=== PATIENT | female | born 1975 | race African-American/Black ===

== ENCOUNTER 2016-12-18 10:37 | Emergency (ER) | payer SELFPAY ==
[~2016-12-18] VITALS: Ht 165.1 cm; Wt 103.6 kg
[~2016-12-18 10:37] MED LIST: MIRENA52 MG; MONONESSA 35 MC1 TA1 PO; NORCO 325 MG-51 TAB PO; VENTOLIN0.09 MG IH
[2016-12-18] MEDS ORDERED: PREDNISONE20 MG PO (12:14)
[2016-12-18] MEDS ORDERED: PROAIR HFA0.09 MG/AC IH (12:14)
[2016-12-18 12:41] VITALS: BP 122/75; PULSE 89; TEMP 98.5
== END 2016-12-18 12:41 | disposition home or self-care (01) ==
LOC: COL.ER 10:37
DX: J45.901 Unspecified asthma with (acute) exacerbation (principal)
CPT/HCPCS: J7512

== ENCOUNTER 2017-09-03 09:40 | Emergency (ER) | payer MEDICAID ==
[~2017-09-03] VITALS: Ht 162.6 cm; Wt 105.1 kg
[~2017-09-03 09:40] MED LIST changes: +PREDNISONE20 MG PO; +PROAIR HFA0.09 MG/AC IH
[2017-09-03 09:48] VITALS: TEMP 99.3
[2017-09-03] MEDS ORDERED: MULTI VITAMINS1 TAB PO (09:51)
[2017-09-03] MEDS ORDERED: PROAIR HFA0.09 MG/AC IH (10:16)
[2017-09-03] MEDS ORDERED: TESSALON PERLE200 MG PO (10:16)
[2017-09-03] MEDS ORDERED: ZITHROMAX 250M250 MG PO (10:16)
[2017-09-03 11:46] VITALS: BP 103/75; PULSE 112
== END 2017-09-03 11:47 | disposition home or self-care (01) ==
LOC: COL.ER 09:40
DX: J45.901 Unspecified asthma with (acute) exacerbation (principal); J06.9 Acute upper respiratory infection, unspecified; J20.9 Acute bronchitis, unspecified
CPT/HCPCS: J8540

== ENCOUNTER 2018-01-01 08:28 | Emergency (ER) | payer MEDICAID ==
[~2018-01-01] VITALS: Ht 167.6 cm; Wt 103.6 kg
[~2018-01-01 08:28] MED LIST changes: +MULTI VITAMINS1 TAB PO; +TESSALON PERLE200 MG PO; +ZITHROMAX 250M250 MG PO
[2018-01-01 08:33] VITALS: TEMP 99.5
[2018-01-01] MEDS ORDERED: PREDNISONE20 MG PO (09:39)
[2018-01-01] MEDS ORDERED: PROAIR HFA0.09 MG/AC IH (09:39)
[2018-01-01 09:41] VITALS: BP 131/82; PULSE 105
== END 2018-01-01 10:08 | disposition home or self-care (01) ==
LOC: COL.ER 08:28
DX: J45.901 Unspecified asthma with (acute) exacerbation (principal)
CPT/HCPCS: J7512

== ENCOUNTER 2018-02-27 10:00 | Emergency (ER) | payer MEDICAID ==
[~2018-02-27] VITALS: Ht 162.6 cm; Wt 105.5 kg
[2018-02-27 10:07] VITALS: BP 131/80; TEMP 98.4
[2018-02-27] MEDS ORDERED: PREDNISONE20 MG PO (10:37)
[2018-02-27] MEDS ORDERED: DULERA1 AR1 IH (10:40)
[2018-02-27] MEDS ORDERED: PROVENTIL0.09 MG/A1 IH (10:55)
[2018-02-27 11:35] VITALS: PULSE 82
== END 2018-02-27 11:35 | disposition home or self-care (01) ==
LOC: COL.ER 10:00
DX: J45.901 Unspecified asthma with (acute) exacerbation (principal)
CPT/HCPCS: J7512

== ENCOUNTER 2018-04-07 22:06 | Emergency (ER) | payer MEDICAID ==
[~2018-04-07] VITALS: Ht 162.6 cm; Wt 105.5 kg
[~2018-04-07 22:06] MED LIST changes: +DULERA1 AR1 IH; +PROVENTIL0.09 MG/A1 IH
[2018-04-07] MEDS ORDERED: BACTROBAN15 GM TOP (22:31)
[2018-04-07] MEDS ORDERED: PREDNISONE10 MG PO (22:31)
[2018-04-07 22:52] VITALS: BP 123/74; PULSE 96; TEMP 97.1
== END 2018-04-07 22:50 | disposition home or self-care (01) ==
LOC: COL.ER 22:06
DX: L30.9 Dermatitis, unspecified (principal); L01.00 Impetigo, unspecified; J45.909 Unspecified asthma, uncomplicated
CPT/HCPCS: J7512

== ENCOUNTER 2018-05-17 06:28 | Emergency (ER) | payer BC, MEDICAID ==
[~2018-05-17] VITALS: Ht 165.1 cm; Wt 105.5 kg
[~2018-05-17 06:28] MED LIST changes: +BACTROBAN15 GM TOP; +PREDNISONE10 MG PO
[2018-05-17 06:35] VITALS: TEMP 98.8
[2018-05-17 07:05] LABS: BASO % 0.7 % (0.0-2.0); EOS # 0.3 (0.0-0.7); EOS % 4.3 % (0-4.0); GRAN # 3.2 (1.4-6.5); GRAN % 53.4 % (42.2-75.2); HEMATOCRIT 39.2 % (37.0-47.0); LYMPH # 2.2 (1.2-3.4); LYMPH % 35.8 % (20.0-51.0); MEAN CELL VOLUME 98 fl (80.0-100.0); MEAN CORPUSCULAR HEMOGLOBIN 33 pg (27.0-31.0); MEAN CORPUSCULAR HGB CONC 33 g/dl (33.0-37.0); MEAN PLATELET VOLUME 9.7 fl (7.4-10.4); MONO # 0.3 (0.1-0.6); MONO % 5.3 % (1.7-9.3); PLATELET COUNT 229 K/mm3 (130-400); RED BLOOD COUNT 3.99 M/mm3 (4.10-5.30)
[2018-05-17 07:21] LABS: ALANINE AMINOTRANSFERASE 14 U/L (9-52); ALBUMIN 3.8 gm/dL (3.5-5.0); ALKALINE PHOSPHATASE 75 U/L (50-136); ANION GAP 5 mmol/L (7-16); AST,SGOT 19 U/L (15-37); BILIRUBIN,TOTAL 0.6 mg/dL (0.0-1.0); BLOOD UREA NITROGEN 12 mg/dL (7-17); CARBON DIOXIDE 27 mmol/L (22-30); CHLORIDE 106 mmol/L (98-107); CREATININE, serum 0.76 mg/dL (0.52-1.25); GLUCOSE 110 mg/dL (74-106); POTASSIUM 3.8 mmol/L (3.4-5.0); SODIUM 138 mmol/L (137-145); TOTAL PROTEIN 7.2 gm/dL (6.4-8.2)
[2018-05-17 07:24] LABS: ERYTHROCYTE SEDIMENTATION RATE 23 mm/hr (0-20)
[2018-05-17 07:28] LABS: C-REACTIVE PROTEIN < 0.5 mg/dL (0.0-0.9)
[2018-05-17 09:55] LABS: SYNOVIAL FL. MONONUCLEAR 7.6 % (0-75)
[2018-05-17 09:57] LABS: SYNOVIAL FLUID RBC 48000 /mm3 (0-0); SYNOVIAL FLUID WBC 14455 /mm3 (200-600)
[2018-05-17 09:59] LABS: SYNOVIAL FLUID APPEARANCE BLOODY; SYNOVIAL FLUID COLOR RED
[2018-05-17] MEDS ORDERED: MOBIC 7.5MG7.5 MG PO ×3 (10:23→11:12)
[2018-05-17] MEDS ORDERED: NORCO 325 MG-51 TAB PO (10:23)
[2018-05-17 11:15] VITALS: BP 121/90; PULSE 85
== END 2018-05-17 11:17 | disposition home or self-care (01) ==
LOC: COL.ER 06:28
PROVIDERS: Emergency Medicine
DX: M19.90 Unspecified osteoarthritis, unspecified site (principal); J45.909 Unspecified asthma, uncomplicated

== ENCOUNTER 2018-06-20 20:43 | Emergency (ER) | payer BC, MEDICAID ==
[~2018-06-20] VITALS: Ht 162.6 cm; Wt 105.5 kg
[~2018-06-20 20:43] MED LIST changes: +MOBIC 7.5MG7.5 MG PO
[2018-06-20 20:50] VITALS: BP 124/64; TEMP 97.9
[2018-06-20 23:10] VITALS: PULSE 68
== END 2018-06-20 23:13 | disposition home or self-care (01) ==
LOC: COL.ER 20:43
DX: M65.841 Other synovitis and tenosynovitis, right hand (principal); J45.909 Unspecified asthma, uncomplicated; M17.12 Unilateral primary osteoarthritis, left knee

== ENCOUNTER 2018-07-27 10:00 | Outpatient (RCR) | payer BC, MEDICAID | END 2018-08-19 13:00 | disposition home or self-care (01) | LOC: WSC 10:00 | DX: M25.562 Pain in left knee (principal) | CPT/HCPCS: G8978-GP; G8979-GP ==

== ENCOUNTER 2018-09-12 21:21 | Emergency (ER) | payer BC, MEDICAID ==
[~2018-09-12] VITALS: Ht 165.1 cm; Wt 106.8 kg
[2018-09-12 21:25] VITALS: BP 136/67; PULSE 87; TEMP 98.5
[2018-09-12] MEDS ORDERED: NORCO 325 MG-51 TAB PO (23:48)
== END 2018-09-13 00:28 | disposition home or self-care (01) ==
LOC: COL.ER 21:21
DX: M25.562 Pain in left knee (principal)
CPT/HCPCS: J1885

== ENCOUNTER 2019-01-25 09:40 | Emergency (ER) | payer BC, MEDICAID ==
[~2019-01-25] VITALS: Ht 165.1 cm; Wt 100.5 kg
[2019-01-25 09:44] VITALS: BP 142/80
[2019-01-25] MEDS ORDERED: PLAQUENIL 200M200 MG PO (09:56)
[2019-01-25] MEDS ORDERED: PREDNISONE20 MG PO (11:15)
[2019-01-25 11:25] VITALS: PULSE 98; TEMP 98
== END 2019-01-25 11:25 | disposition home or self-care (01) ==
LOC: COL.ER 09:40
DX: T37.8X5A Adverse effect of other specified systemic anti-infectives and antiparasitics, initial encounter (principal); M32.9 Systemic lupus erythematosus, unspecified; J98.01 Acute bronchospasm; L50.9 Urticaria, unspecified
CPT/HCPCS: J1200; J7512

== ENCOUNTER 2019-01-26 20:14 | Emergency (ER) | payer BC, MEDICAID ==
[~2019-01-26] VITALS: Ht 165.1 cm; Wt 100.5 kg
[~2019-01-26 20:14] MED LIST changes: +PLAQUENIL 200M200 MG PO
[2019-01-26 20:19] VITALS: TEMP 98.5
[2019-01-26 21:01] LABS: BASO % 0.1 % (0.0-2.0); EOS # 0.1 (0.0-0.7); EOS % 0.8 % (0-4.0); GRAN # 5.8 (1.4-6.5); GRAN % 79.4 % (42.2-75.2); HEMATOCRIT 39.4 % (37.0-47.0); HEMOGLOBIN 12.9 g/dl (12.5-16.0); LYMPH # 1.1 (1.2-3.4); LYMPH % 14.5 % (20.0-51.0); MEAN CELL VOLUME 99 fl (80.0-100.0); MEAN CORPUSCULAR HEMOGLOBIN 32 pg (27.0-31.0); MEAN CORPUSCULAR HGB CONC 33 g/dl (33.0-37.0); MEAN PLATELET VOLUME 10.1 fl (7.4-10.4); MONO # 0.4 (0.1-0.6); MONO % 4.8 % (1.7-9.3); PLATELET COUNT 200 K/mm3 (130-400); REDCELL DISTRIBUTION WIDTH-CV 12.6 % (11.5-14.5)
[2019-01-26 21:13] LABS: ALANINE AMINOTRANSFERASE 12 U/L (9-52); ALKALINE PHOSPHATASE 85 U/L (50-136); ANION GAP 10 mmol/L (7-16); AST,SGOT 29 U/L (15-37); BILIRUBIN,TOTAL 0.5 mg/dL (0.0-1.0); BLOOD UREA NITROGEN 14 mg/dL (7-17); CALCIUM 9.1 mg/dL (8.4-10.2); CARBON DIOXIDE 23 mmol/L (22-30); CHLORIDE 105 mmol/L (98-107); CREATININE, serum 0.78 (0.52-1.25); GLUCOSE 132 mg/dL (74-106); POTASSIUM 3.9 mmol/L (3.4-5.0); SODIUM 137 mmol/L (137-145); TOTAL PROTEIN 7.6 gm/dL (6.4-8.2)
[2019-01-26 21:16] LABS: C-REACTIVE PROTEIN < 0.5 mg/dL (0.0-0.9)
[2019-01-26 21:52] LABS: ERYTHROCYTE SEDIMENTATION RATE 14 mm/hr (0-20)
[2019-01-26 22:25] VITALS: BP 135/85; PULSE 68
== END 2019-01-26 22:25 | disposition home or self-care (01) ==
LOC: COL.ER 20:14
PROVIDERS: Emergency Medicine
DX: L50.8 Other urticaria (principal); T78.40XA Allergy, unspecified, initial encounter; J45.909 Unspecified asthma, uncomplicated; L93.0 Discoid lupus erythematosus; Z79.52 Long term (current) use of systemic steroids
CPT/HCPCS: J1100; J1200; J7030

== ENCOUNTER 2019-07-19 08:28 | Emergency (ER) | payer BC, MEDICAID ==
[~2019-07-19] VITALS: Ht 165.1 cm; Wt 98.0 kg
[2019-07-19 08:32] VITALS: BP 128/74; TEMP 98.6
[2019-07-19 09:23] LABS: BASO % 0.4 % (0.0-2.0); EOS # 0.1 (0.0-0.7); EOS % 1.9 % (0-4.0); GRAN # 3.5 (1.4-6.5); GRAN % 66.6 % (42.2-75.2); HEMOGLOBIN 11.6 g/dl (12.5-16.0); LYMPH # 1.3 (1.2-3.4); LYMPH % 24.3 % (20.0-51.0); MEAN CELL VOLUME 101 fl (80.0-100.0); MEAN CORPUSCULAR HEMOGLOBIN 33 pg (27.0-31.0); MEAN CORPUSCULAR HGB CONC 32 g/dl (33.0-37.0); MEAN PLATELET VOLUME 9.9 fl (7.4-10.4); MONO # 0.3 (0.1-0.6); MONO % 6.4 % (1.7-9.3); PLATELET COUNT 206 K/mm3 (130-400); RED BLOOD COUNT 3.55 M/mm3 (4.10-5.30); REDCELL DISTRIBUTION WIDTH-CV 12.6 % (11.5-14.5)
[2019-07-19 09:48] LABS: ERYTHROCYTE SEDIMENTATION RATE 31 mm/hr (0-20)
[2019-07-19] MEDS ORDERED: NORCO 325 MG-51 TAB PO (10:14)
[2019-07-19 10:40] VITALS: PULSE 85
== END 2019-07-19 10:40 | disposition home or self-care (01) ==
LOC: COL.ER 08:28
PROVIDERS: Physician Assistant
DX: M79.622 Pain in left upper arm (principal); M79.621 Pain in right upper arm; Z79.52 Long term (current) use of systemic steroids

== ENCOUNTER 2019-08-02 11:31 | Emergency (ER) | payer BC, MEDICAID ==
[~2019-08-02] VITALS: Ht 165.1 cm; Wt 98.2 kg
[2019-08-02 11:36] VITALS: BP 133/81; TEMP 98.4
[2019-08-02] MEDS ORDERED: PREDNISONE20 MG PO (12:06)
[2019-08-02] MEDS ORDERED: RT ALBUTER2.5 MG/0.5 IH (12:08)
[2019-08-02] MEDS ORDERED: DAPSONE 100MG100 MG PO (12:09)
[2019-08-02] MEDS ORDERED: TAMIFLU 75MG75 MG PO (12:55)
[2019-08-02 13:52] VITALS: PULSE 105
== END 2019-08-02 13:47 | disposition home or self-care (01) ==
LOC: COL.ER 11:31
DX: J45.901 Unspecified asthma with (acute) exacerbation (principal); J10.1 Influenza due to other identified influenza virus with other respiratory manifestations; Z79.52 Long term (current) use of systemic steroids

== ENCOUNTER 2019-08-08 00:28 | Inpatient (IN) | payer BC, MEDICAID ==
[~2019-08-08] VITALS: Ht 165.1 cm; Wt 100.3 kg
[~2019-08-08 00:28] MED LIST changes: +DAPSONE 100MG100 MG PO; +RT ALBUTER2.5 MG/0.5 IH; +TAMIFLU 75MG75 MG PO
[2019-08-08 01:31] LABS: BASO % 0.3 % (0.0-2.0); EOS # 0.1 (0.0-0.7); EOS % 1.2 % (0-4.0); GRAN # 3.5 (1.4-6.5); GRAN % 60.4 % (42.2-75.2); HEMOGLOBIN 11.6 g/dl (12.5-16.0); LYMPH # 1.9 (1.2-3.4); MEAN CELL VOLUME 103 fl (80.0-100.0); MEAN CORPUSCULAR HEMOGLOBIN 32 pg (27.0-31.0); MEAN CORPUSCULAR HGB CONC 31 g/dl (33.0-37.0); MEAN PLATELET VOLUME 9.8 fl (7.4-10.4); MONO # 0.3 (0.1-0.6); MONO % 4.9 % (1.7-9.3); PLATELET COUNT 181 K/mm3 (130-400); RED BLOOD COUNT 3.59 M/mm3 (4.10-5.30)
[2019-08-08 01:43] LABS: ALBUMIN 3.9 gm/dL (3.5-5.0); BILIRUBIN,TOTAL 1.4 mg/dL (0.0-1.0); C-REACTIVE PROTEIN 7.7 mg/dL (0.0-0.9); CALCIUM 8.6 mg/dL (8.4-10.2); CREATININE, serum 0.55 (0.52-1.25); POTASSIUM 3.5 mmol/L (3.4-5.0); TOTAL PROTEIN 7.6 gm/dL (6.4-8.2)
[2019-08-08 01:52] LABS: TROPONIN-I 0.019 ng/mL (0.000-0.035)
--- NOTE | 2019-08-08 05:15 | NUR ---
ADMITTED TO ROOM 351 PER BED. DROPLET ISOLATION NOTED. TELE IN PLACE, INT NEEDLE BILAT F/A STARTED IN ER. NS STARTED AT 150CC//HR PER PUMP TO LT ARM. ORIENTED TO ROOM. CALL LIGHT IN REACH. BED ALARM SET FOR HIGH FALL RISK. WEAK.
--- NOTE | 2019-08-08 05:33 | NUR ---
PT VERY WEAK. HAS THICK NON PRODUCTIVE COUGH. O2 SAT 100% ON RA. STARTED ZOSYN IN LT AC. VANCOMYCIN INFUSING RT AC, PAIN LEVEL 8/10 BACK AREA. REVIEWED ORIENTATION TO ROOM. HAS HAIR EXTENSIONS GLUED IN. HAS RT LIP PIERCING.
[2019-08-08] MEDS ORDERED: RT ALBUTER2.5 MG/0.5 IH (05:41)
[2019-08-08] MEDS ORDERED: CYMBALTA 30MG30 MG PO (05:45)
[2019-08-08] MEDS ORDERED: CYMBALTA 60MG60 MG PO (05:48)
[2019-08-08 06:18] VITALS: BP 122/71; PULSE 106; TEMP 98.5
[2019-08-08 07:32] VITALS: BP 131/75; PULSE 96; TEMP 98.6
[2019-08-08 12:32] VITALS: BP 147/83; PULSE 90; TEMP 97.9
--- NOTE | 2019-08-08 14:36 | NUR ---
Community Advocate met with patient and patient's daughter Sarah (ph#[phone]) to discuss discharge planning. Patient lives in [place] and sees Dr. Chung for primary care. Patient obtains medications from [facility] with no difficulties. Patient uses a nebulizer and no other DME. Patient is independent with ADLS. Patient does not have Advance Directives but is interested in taking home the form. SW provided. Patient plans to return home upon discharge with her daughter providing transportation. No additional needs identified at this time.
[2019-08-08 16:10] VITALS: BP 143/82; PULSE 94; TEMP 98.2
--- NOTE | 2019-08-08 19:23 | NUR ---
Patient is alert and oriented. complained of back pain. got norco for pain. Patient got a shower this afternoon. patient had IV on right and left AC. left IV leaked,it was removed. i attempted another new iv twice. no success. patient still have IV on right AC. Patient daughter came to visit earlier today. patient is currently resting in bed. Denies any pain at this time
[2019-08-08 19:35] VITALS: BP 129/80; PULSE 86; TEMP 98.1
--- NOTE | 2019-08-08 19:39 | NUR ---
Resting in bed. Assessment complete. Respirations 24, shortness of breath while resting in bed. Wheezing on expiration heard in right lung and left base. Heart sounds normal. Bowels active x4. Pulses strong throughout. No edema noted. Denies pain. IV right AC free of complications at this time. Requesting order for vasaline for itching due to lupus. Denies other needs. Call light in reach.
--- NOTE | 2019-08-08 19:48 | NUR ---
Spoke with Selma CALDWELL for order for vasaline. Will add for patient.
--- NOTE | 2019-08-08 22:50 | NUR ---
Laying in bed. Reports mid epigastric pain. States "feels like dinner is stuck there." Request something for heart burn. Will contact PAULETTE Hahn.
--- NOTE | 2019-08-09 01:06 | NUR ---
Epigastric pain continues. Orderes received for GI cocktail and protonix. Will provided to patient.
[2019-08-09 01:11] VITALS: BP 129/75; PULSE 110; TEMP 97
--- NOTE | 2019-08-09 03:32 | NUR ---
Patient reporting continued epigastric pain. Per Selma can given another GI cocktail and PRN norco. Will provide.
--- NOTE | 2019-08-09 03:41 | NUR ---
Refused GI cocktail. Accepted norco.
[2019-08-09 04:53] VITALS: BP 121/74; PULSE 77; TEMP 98
--- NOTE | 2019-08-09 06:33 | NUR ---
Patient epigastric pain resolved with norco. Otherwise uneventful night. Resting in bed this AM. Denies needs. Call light in reach.
--- NOTE | 2019-08-09 07:41 | NUR ---
Report given to KIMBERLY Saravia
[2019-08-09 08:35] LABS: BASO % 0.1 % (0.0-2.0); GRAN # 5.9 (1.4-6.5); GRAN % 81.5 % (42.2-75.2); HEMOGLOBIN 10.2 g/dl (12.5-16.0); LYMPH # 0.9 (1.2-3.4); LYMPH % 12.7 % (20.0-51.0); MEAN CELL VOLUME 103 fl (80.0-100.0); MEAN CORPUSCULAR HEMOGLOBIN 32 pg (27.0-31.0); MEAN CORPUSCULAR HGB CONC 32 g/dl (33.0-37.0); MEAN PLATELET VOLUME 10.3 fl (7.4-10.4); MONO # 0.4 (0.1-0.6); MONO % 5.1 % (1.7-9.3); PLATELET COUNT 170 K/mm3 (130-400); RED BLOOD COUNT 3.15 M/mm3 (4.10-5.30); REDCELL DISTRIBUTION WIDTH-CV 13.8 % (11.5-14.5)
[2019-08-09 08:38] LABS: HEMATOCRIT 32.4 % (37.0-47.0)
[2019-08-09 08:48] LABS: ALBUMIN 3.8 gm/dL (3.5-5.0); BILIRUBIN,TOTAL 0.9 mg/dL (0.0-1.0); CALCIUM 8.7 mg/dL (8.4-10.2); CREATININE, serum 0.55 (0.52-1.25); POTASSIUM 3.6 mmol/L (3.4-5.0); TOTAL PROTEIN 7.5 gm/dL (6.4-8.2)
--- NOTE | 2019-08-09 09:00 | NUR ---
Patient is sitting up in bed, is emotional, states that she is overwhelmed. Has been sitting in the dark. Did ask if she would like for staff to turn on lights and she declined. She denies needs at this time. Call light and personal items are within reach.
--- NOTE | 2019-08-09 09:37 | NUR ---
Division Toll Wire Chief attended clinical rounds with the team. Patient reports chest pain to Hospitalist. SW to continue to follow as needed.
[2019-08-09 11:49] VITALS: BP 125/65; PULSE 60; TEMP 98
[2019-08-09 17:12] VITALS: BP 129/80; PULSE 65; TEMP 98.3
--- NOTE | 2019-08-09 19:00 | NUR ---
0930, patient has been very tearful, did sit with patient and she verbalized that she was very overwhelmed and struggling. Did administer ordered ativan which was placed at 0945. Patient then went to CT and returned happy stating she felt so much better. She was smiling and positive. Did have lights on and was visiting. With staff and visitors. Did speak with infection control nurse regarding completed course of tamiflu, will review record tomorrow to determine if patient may be taken off precautions.
--- NOTE | 2019-08-09 19:30 | NUR ---
Resting in bed. Assesment complete. Left lower lobe diminished. Right lower lobe crackles. Otherwise clear. Heart sounds normal. Bowels active x4. Pulses strong throughout. Bilateral lower leg edema +1 present. IV right AC infusing as ordered without complications. Requested PRN ativan. Provided to patient. Denies pain. Denies other needs at this time. Call light in reach.
[2019-08-09 22:19] VITALS: BP 121/71; PULSE 71; TEMP 97.7
--- NOTE | 2019-08-09 22:30 | NUR ---
Provided with JIHAN orozco at this time. Denies other needs. Call light in reach.
--- NOTE | 2019-08-10 01:43 | NUR ---
Telememtry called stating patient bradycardic in 40s. Upon assessment patient sleeping. Denies symptoms at this time. Will monitor. Call light in reach.
[2019-08-10 01:52] VITALS: BP 146/87; PULSE 57; TEMP 98.1
--- NOTE | 2019-08-10 02:56 | NUR ---
Resting in bed. Denies needs. Denies pain. Call light in reach.
--- NOTE | 2019-08-10 05:21 | NUR ---
Resting in bed. Denies needs. Call light in reach.
--- NOTE | 2019-08-10 05:49 | NUR ---
Patient required x1 dose of ativan and x1 dose of robitussin throughout night. Otherwise uneventful. Resting in bed this AM. Call light in reach.
[2019-08-10 05:57] VITALS: BP 144/85; PULSE 77; TEMP 98.1
--- NOTE | 2019-08-10 06:59 | NUR ---
Report given to KIMBERLY Robles
[2019-08-10 07:29] LABS: EOS % 0.2 % (0-4.0); GRAN # 3.7 (1.4-6.5); GRAN % 58.6 % (42.2-75.2); LYMPH # 2.1 (1.2-3.4); LYMPH % 32.8 % (20.0-51.0); MEAN CELL VOLUME 103 fl (80.0-100.0); MEAN CORPUSCULAR HGB CONC 31 g/dl (33.0-37.0); MEAN PLATELET VOLUME 10.6 fl (7.4-10.4); MONO # 0.5 (0.1-0.6); MONO % 7.8 % (1.7-9.3); PLATELET COUNT 187 K/mm3 (130-400); REDCELL DISTRIBUTION WIDTH-CV 14.1 % (11.5-14.5)
[2019-08-10 07:37] LABS: CALCIUM 8.6 mg/dL (8.4-10.2); CREATININE, serum 0.7 (0.52-1.25); POTASSIUM 3.2 mmol/L (3.4-5.0)
[2019-08-10 07:40] LABS: HEMOGLOBIN 9.6 g/dl (12.5-16.0); MEAN CORPUSCULAR HEMOGLOBIN 32 pg (27.0-31.0)
[2019-08-10 08:35] VITALS: BP 135/67; PULSE 112; TEMP 98.1
[2019-08-10] MEDS ORDERED: ZITHROMAX Z PA250 MG PO (11:39)
[2019-08-10] MEDS ORDERED: OMNICEF 300MG300 MG PO (11:40)
[2019-08-10] MEDS ORDERED: KLONOPIN 0.5MG0.5 MG PO (11:42)
[2019-08-10 12:05] VITALS: BP 143/80; PULSE 77; TEMP 97.4
[2019-08-10] MEDS ORDERED: PROTONIX 40MG T40 MG PO (14:26)
[2019-08-10 15:39] VITALS: BP 147/89; PULSE 71; TEMP 98.4
--- NOTE | 2019-08-10 16:30 | NUR ---
PT HAD UNEVENTFUL DAY. RECIEVED LAST DOSE OF IV ABX BEFORE DC'ING AND FINISHED DRINKING HER POTASSIUM. IV AND TELE REMOVED WITHOUT ISSUES.DISCHARE EDUCATION PROVIDED. NO QUESTIONS VOICED. BURGLAR ALARM ASSEMBLER ESCORTED PT RICHARD WHEN HER FAMILY WAS HERE TO TAKE HER HOME.
[2019-08-13 14:39] LABS: MYCOPLASMA IGM ANTIBODIES Negative (Negative)
[2019-08-16 08:39] LABS: .HISTOPLASMA ANTIGEN SERUM None Detected (())
== END 2019-08-10 17:00 | disposition home or self-care (01) | DRG 871 ==
LOC: COL.ER 00:28 → MEDICAL 03:09
PROVIDERS: Emergency Medicine; Hospitalist; Physician Assistant; ADMIT Family Medicine
DX: A41.9 Sepsis, unspecified organism (principal); J10.00 Influenza due to other identified influenza virus with unspecified type of pneumonia; J45.909 Unspecified asthma, uncomplicated; F32.9 Major depressive disorder, single episode, unspecified; E87.6 Hypokalemia; R07.89 Other chest pain; L93.0 Discoid lupus erythematosus; D50.9 Iron deficiency anemia, unspecified; R79.89 Other specified abnormal findings of blood chemistry
CPT/HCPCS: 99222-AI; 99232-AI; 99239; J1650; J1956; J2543; J2920; J2930; J3370; J7030; J7050; J7512; Q9967

== ENCOUNTER 2019-11-10 14:32 | Emergency (ER) | payer BC, MEDICAID ==
[~2019-11-10] VITALS: Ht 165.1 cm; Wt 97.7 kg
[~2019-11-10 14:32] MED LIST changes: +CYMBALTA 30MG30 MG PO; +CYMBALTA 60MG60 MG PO; +KLONOPIN 0.5MG0.5 MG PO; +OMNICEF 300MG300 MG PO; +PROTONIX 40MG T40 MG PO; +ZITHROMAX Z PA250 MG PO
[2019-11-10 14:42] VITALS: BP 134/83; TEMP 98.5
[2019-11-10] MEDS ORDERED: DAPSONE 100MG100 MG PO (15:06)
[2019-11-10] MEDS ORDERED: BACTRIM DS 8001 TAB PO (16:05)
[2019-11-10] MEDS ORDERED: NORCO 325 MG-51 TAB PO (16:05)
[2019-11-10 16:30] VITALS: PULSE 100
== END 2019-11-10 16:31 | disposition home or self-care (01) ==
LOC: COL.ER 14:32
DX: L03.116 Cellulitis of left lower limb (principal); L03.115 Cellulitis of right lower limb; J45.909 Unspecified asthma, uncomplicated; M32.9 Systemic lupus erythematosus, unspecified

== ENCOUNTER → 2020-01-23 | Outpatient (CLI) | payer BC, MEDICAID ==
[~2020-01-23] MED LIST changes: +BACTRIM DS 8001 TAB PO
== END ==
LOC: COL.RAD 11:00
DX: M33.90 Dermatopolymyositis, unspecified, organ involvement unspecified (principal)
CPT/HCPCS: Q9967

== ENCOUNTER 2020-02-02 10:42 | Emergency (ER) | payer BC, MEDICAID ==
[~2020-02-02] VITALS: Ht 165.1 cm; Wt 104.1 kg
[2020-02-02 11:13] VITALS: TEMP 98.9
[2020-02-02] MEDS ORDERED: IMURAN 50MG TAB50 MG PO (11:19)
[2020-02-02 12:29] LABS: COLLECTION METHOD CLEAN CATCH
[2020-02-02 12:37] LABS: MUCOUS Present /lpf; PH 5 (5-8); SQUAMOUS EPITHELIAL 0-2 /hpf; URINE APPEARANCE Hazy; URINE BACTERIA None Seen /hpf; URINE BILIRUBIN Negative (NEGATIVE); URINE BLOOD 1+ (NEGATIVE); URINE COLOR Amber; URINE GLUCOSE Negative (NEGATIVE); URINE KETONE Negative (NEGATIVE); URINE LEUKOCYTE ESTERASE Negative (NEGATIVE); URINE NITRATE Negative (NEGATIVE); URINE PROTEIN(semi-quant) 1+ (NEGATIVE); URINE UROBILINOGEN >=4.0 mg/dL (NEGATIVE)
[2020-02-02] MEDS ORDERED: NORCO 325 MG-51 TAB PO (13:32)
[2020-02-02 14:33] VITALS: BP 105/73; PULSE 92
== END 2020-02-02 14:33 | disposition home or self-care (01) ==
LOC: COL.ER 10:42
PROVIDERS: Physician Assistant
DX: L98.9 Disorder of the skin and subcutaneous tissue, unspecified (principal); M33.90 Dermatopolymyositis, unspecified, organ involvement unspecified; R51 Headache; J45.909 Unspecified asthma, uncomplicated; Z32.02 Encounter for pregnancy test, result negative; Z87.39 Personal history of other diseases of the musculoskeletal system and connective tissue; Z79.52 Long term (current) use of systemic steroids; Z88.3 Allergy status to other anti-infective agents
CPT/HCPCS: J1885

== ENCOUNTER 2020-11-26 21:54 | Emergency (ER) | payer MEDICAID ==
[~2020-11-26] VITALS: Ht 165.1 cm; Wt 104.1 kg
[~2020-11-26 21:54] MED LIST changes: +IMURAN 50MG TAB50 MG PO
[2020-11-27] MEDS ORDERED: PERCOCET 325 MG1 TA2 PO (01:38)
[2020-11-27 01:45] VITALS: BP 135/93; PULSE 89; TEMP 97.5
== END 2020-11-27 01:49 | disposition home or self-care (01) ==
LOC: COL.ER 21:54
DX: L93.0 Discoid lupus erythematosus (principal); J45.909 Unspecified asthma, uncomplicated; Z79.51 Long term (current) use of inhaled steroids
CPT/HCPCS: J2270

== ENCOUNTER 2020-12-13 06:41 | Observation (INO) | payer MEDICAID ==
[~2020-12-13] VITALS: Ht 165.1 cm; Wt 101.6 kg
[~2020-12-13 06:41] MED LIST changes: +PERCOCET 325 MG1 TA2 PO
[2020-12-13 07:23] LABS: BASO % 0.5 % (0.0-2.0); EOS % 0.8 % (0-4.0); GRAN # 2.1 (1.4-6.5); GRAN % 53.4 % (42.2-75.2); HEMATOCRIT 37.6 % (37.0-47.0); LYMPH # 1.2 (1.2-3.4); LYMPH % 31.2 % (20.0-51.0); MEAN CELL VOLUME 101 fl (80.0-100.0); MEAN CORPUSCULAR HEMOGLOBIN 32 pg (27.0-31.0); MEAN CORPUSCULAR HGB CONC 32 g/dl (33.0-37.0); MEAN PLATELET VOLUME 10.3 fl (7.4-10.4); MONO # 0.5 (0.1-0.6); MONO % 13.3 % (1.7-9.3); PLATELET COUNT 232 K/mm3 (130-400); RED BLOOD COUNT 3.73 M/mm3 (4.10-5.30); REDCELL DISTRIBUTION WIDTH-CV 13.1 % (11.5-14.5)
[2020-12-13 07:46] LABS: TROPONIN-I < 0.012 ng/mL (0.000-0.035)
[2020-12-13 08:15] LABS: ALBUMIN 3.9 gm/dL (3.5-5.0); BILIRUBIN,TOTAL 0.3 mg/dL (0.0-1.0); CALCIUM 8.9 mg/dL (8.4-10.2); CREATININE, serum 0.78 (0.52-1.25); POTASSIUM 3.4 mmol/L (3.4-5.0); TOTAL PROTEIN 8.4 gm/dL (6.4-8.2)
[2020-12-13] MEDS ORDERED: PREDNISONE 2.52.5 MG PO (09:39)
[2020-12-13] MEDS ORDERED: MASON NATURAL2000 IU PO (09:39)
[2020-12-13] MEDS ORDERED: LEXAPRO20 MG PO (09:40)
[2020-12-13] MEDS ORDERED: ELIQUIS 5MG PO (09:40)
[2020-12-13 15:21] LABS: ARTERIAL BLD GAS O2 SATURATION 98.7 % (92-100); ARTERIAL BLOOD GAS BASE EXCESS -2.4 (-2-2); ARTERIAL BLOOD GAS PCO2 32.4 mmHg (35-45); ARTERIAL BLOOD GAS pH 7.43 (7.35-7.45)
[2020-12-13 15:22] LABS: ARTERIAL BLOOD GAS PO2 129.7 mmHg (80-100)
--- NOTE | 2020-12-13 15:27 | NUR ---
PT APPEARS UPSET AND TEARFUL, AOX4, ASSESSMENT PERFORMED, ADMISSION COMPLETED, ORIENTED PT TO ROOM, HELPED HER ORDER DINNER, BROUGHT IN WATER AND TISSUES, NO OTHER NEEDS
--- NOTE | 2020-12-13 15:43 | NUR ---
ATTEMPTED TO CALL CONSULT, PHYSICIAN DID NOT ANSWER
[2020-12-13 15:51] LABS: MAGNESIUM 1.8 mg/dL (1.6-2.3)
[2020-12-13 16:22] VITALS: BP 121/72; PULSE 77; TEMP 98.8
--- NOTE | 2020-12-13 17:40 | NUR ---
PT DENIES PAIN, DENIES SOB, N/V/D. ATTEMPTED TO CALL CONSULT BUT ID DID NOT ANSWER, PT ASSESSMENT PERFORMED, INDEPENDENT IN ROOM, CALL LIGHT WITHIN REACH, OXYGEN EXTENSION BROUGHT IN, NO OTHER NEEDS
--- NOTE | 2020-12-13 17:50 | NUR ---
CRITICAL DDIMER CALLED TO DR. LUBIN. NO NEW ORDERS AT THIS TIME.
[2020-12-13 19:20] VITALS: BP 118/74; PULSE 92; TEMP 98.2
[2020-12-13 20:44] LABS: TROPONIN-I < 0.012 ng/mL (0.000-0.035)
[2020-12-13 23:07] VITALS: BP 116/78; PULSE 98; TEMP 98.6
--- NOTE | 2020-12-13 23:26 | NUR ---
Pt is complaining of chest pain. I called crescencio. She ordered, Morphine 2 mg IV push Q2hrs And EKG. Morphine was given. Tele called about her HR. VSS. Will continue to monitor the pt.
[2020-12-14 03:18] VITALS: BP 109/70; PULSE 72; TEMP 98.1
[2020-12-14 06:35] LABS: BASO % 0.3 % (0.0-2.0); GRAN # 1.8 (1.4-6.5); GRAN % 55.1 % (42.2-75.2); HEMATOCRIT 37.4 % (37.0-47.0); MEAN CELL VOLUME 101 fl (80.0-100.0); MEAN CORPUSCULAR HEMOGLOBIN 32 pg (27.0-31.0); MEAN CORPUSCULAR HGB CONC 32 g/dl (33.0-37.0); MEAN PLATELET VOLUME 10.5 fl (7.4-10.4); MONO # 0.4 (0.1-0.6); MONO % 12.7 % (1.7-9.3); PLATELET COUNT 263 K/mm3 (130-400); REDCELL DISTRIBUTION WIDTH-CV 13.1 % (11.5-14.5)
[2020-12-14 06:45] LABS: ANION GAP 6 mmol/L (7-16); BLOOD UREA NITROGEN 16 mg/dL (7-17); CALCIUM 9.1 mg/dL (8.4-10.2); CARBON DIOXIDE 25 mmol/L (22-30); CHLORIDE 105 mmol/L (98-107); CREATININE, serum 0.61 (0.52-1.25); GLUCOSE 97 mg/dL (74-106); POTASSIUM 3.7 mmol/L (3.4-5.0); SODIUM 135 mmol/L (137-145)
--- NOTE | 2020-12-14 06:56 | NUR ---
PT NOT WEARING OXYGEN, ADDRESSED AND PT STATED RESPIRATORY THERAPY TOOK HER OFF OF OXYGEN. PT DENIES PAIN AT THIS TIME. NO OTHER NEEDS
--- NOTE | 2020-12-14 07:50 | NUR ---
PT PLEASANT, AOX4, DENIES SOB, REPORTS MILD CHEST PRESSURE BUT DENIES PAIN MEDS, ASSESSMENT PERFORMED, MEDICATIONS GIVEN, NO OTHER NEEDS AT THIS TIME.
[2020-12-14 08:15] LABS: TROPONIN-I < 0.012 ng/mL (0.000-0.035)
[2020-12-14 08:32] VITALS: BP 117/77; PULSE 81; TEMP 98.8
[2020-12-14] MEDS ORDERED: DECADRON6 MG PO (08:57)
[2020-12-14] MEDS ORDERED: ZOFRAN ODT4 MG PO (08:58)
--- NOTE | 2020-12-14 09:43 | NUR ---
SHANFRAN PROVIDED FOR PT'S NAUSEA. EDUCATED PT ON DISCHARGE INFORMATION, IV AND TELE REMOVED, NO OTHER NEEDS/QUESTIONS AT THIS TIME. PT CALLING RIDE, WILL USE CALL LIGHT WHEN RIDE ARRIVES
--- NOTE | 2020-12-14 10:45 | NUR ---
PT ESCORTED OUT WITH BELONGINGS VIA WHEELCHAIR
== END 2020-12-14 10:45 | disposition home or self-care (01) ==
LOC: COL.ER 06:41 → MEDICAL 09:31
PROVIDERS: Emergency Medicine; Physician Assistant; ADMIT Student in an Organized Health Care Education/Training Program
DX: U07.1 COVID-19 (principal); J96.01 Acute respiratory failure with hypoxia; I82.401 Acute embolism and thrombosis of unspecified deep veins of right lower extremity; R91.1 Solitary pulmonary nodule; J45.20 Mild intermittent asthma, uncomplicated; M33.91 Dermatopolymyositis, unspecified with respiratory involvement; F32.9 Major depressive disorder, single episode, unspecified; Z79.899 Other long term (current) drug therapy; Z79.01 Long term (current) use of anticoagulants; Z79.52 Long term (current) use of systemic steroids
CPT/HCPCS: 99239; G0378; J0696; J1100; J2270; Q9967

== ENCOUNTER 2020-12-23 11:58 | Inpatient (IN) | payer MEDICAID ==
[2020-12-23] VITALS (213 sets, daily range): BP systolic 100; BP diastolic 67; PULSE 93; TEMP 98.7; O2SAT 87–100
[~2020-12-23] VITALS: Ht 165.1 cm; Wt 96.7 kg
[~2020-12-23 11:58] MED LIST changes: +DECADRON6 MG PO; +ELIQUIS 5MG PO; +LEXAPRO20 MG PO; +MASON NATURAL2000 IU PO; +PREDNISONE 2.52.5 MG PO; +ZOFRAN ODT4 MG PO
[2020-12-23 12:32] LABS: BASO % 0.2 % (0.0-2.0); GRAN # 3.8 (1.4-6.5); GRAN % 81.6 % (42.2-75.2); HEMATOCRIT 40.4 % (37.0-47.0); HEMOGLOBIN 13.3 g/dl (12.5-16.0); LYMPH # 0.7 (1.2-3.4); LYMPH % 15.9 % (20.0-51.0); MEAN CELL VOLUME 98 fl (80.0-100.0); MEAN CORPUSCULAR HEMOGLOBIN 32 pg (27.0-31.0); MEAN CORPUSCULAR HGB CONC 33 g/dl (33.0-37.0); MEAN PLATELET VOLUME 10.5 fl (7.4-10.4); MONO # 0.1 (0.1-0.6); MONO % 1.9 % (1.7-9.3); PLATELET COUNT 153 K/mm3 (130-400); RED BLOOD COUNT 4.12 M/mm3 (4.10-5.30); REDCELL DISTRIBUTION WIDTH-CV 12.5 % (11.5-14.5)
[2020-12-23 13:24] LABS: BILIRUBIN,TOTAL 0.6 mg/dL (0.0-1.0); CALCIUM 8.6 mg/dL (8.4-10.2); CREATININE, serum 1.26 (0.52-1.25); POTASSIUM 3.7 mmol/L (3.4-5.0); TOTAL PROTEIN 8.3 gm/dL (6.4-8.2)
[2020-12-23 17:16] LABS: ARTERIAL BLD GAS O2 SATURATION 96.9 % (92-100); ARTERIAL BLD GAS TCO2 CT 20.7; ARTERIAL BLOOD GAS BASE EXCESS -4.5 (-2-2); ARTERIAL BLOOD GAS HCO3 19.7 meq/L (22-26); ARTERIAL BLOOD GAS PCO2 33.9 mmHg (35-45); ARTERIAL BLOOD GAS PO2 96.6 mmHg (80-100); ARTERIAL BLOOD GAS pH 7.38 (7.35-7.45)
--- NOTE | 2020-12-23 17:16 | NUR ---
RECEIVED REPORT FROM KIMBERLY SARAH IN ER. AWAITING ARRIVAL OF PT TO ICU 3.
--- NOTE | 2020-12-23 17:45 | NUR ---
PT ARRIVES VIA STRETCHER TO ICU 3 ON 10L VIA NRB. PT ABLE TO MOVE SELF TO ICU BED BUT NOTEABLE INCREASE IN RR UNTIL PT IS ABLE TO SETTLE BACK IN BED FOR TEN MINS THEN DECREASE RR BACK TO 22. POX 90%. VSS. CALL LIGHT WITHIN REACH. PT ENCOURAGED TO TAKE DEEPER BREATHS AND ROLL FROM SIDE TO SIDE OCCASSIONALLY TO HELP OPEN UP THE LUNGS AND GET AIRFLOW. PT DEMONSTRATED UNDERSTANDING. SHALLOW BREATHS NOTED. WILL MONITOR CLOSELY.
[2020-12-23 21:06] LABS: ARTERIAL BLD GAS O2 SATURATION 96.1 % (92-100); ARTERIAL BLD GAS TCO2 CT 21.1; ARTERIAL BLOOD GAS BASE EXCESS -4.6 (-2-2); ARTERIAL BLOOD GAS PCO2 35.6 mmHg (35-45); ARTERIAL BLOOD GAS PO2 91.3 mmHg (80-100); ARTERIAL BLOOD GAS pH 7.37 (7.35-7.45)
[2020-12-24] VITALS (309 sets, daily range): BP systolic 98–119; BP diastolic 60–68; PULSE 82–88; TEMP 97.8–98.7; O2SAT 90–98
[2020-12-24 05:57] LABS: HEMATOCRIT 39.8 % (37.0-47.0); HEMOGLOBIN 12.5 g/dl (12.5-16.0); MEAN CORPUSCULAR HEMOGLOBIN 32 pg (27.0-31.0); MEAN CORPUSCULAR HGB CONC 31 g/dl (33.0-37.0); PLATELET COUNT 140 K/mm3 (130-400); RED BLOOD COUNT 3.87 M/mm3 (4.10-5.30); REDCELL DISTRIBUTION WIDTH-CV 12.8 % (11.5-14.5)
[2020-12-24 06:05] LABS: MEAN CELL VOLUME 103 fl (80.0-100.0)
[2020-12-24 06:10] LABS: CALCIUM 8.1 mg/dL (8.4-10.2); CREATININE, serum 1.04 (0.52-1.25); MAGNESIUM 2.2 mg/dL (1.6-2.3); POTASSIUM 4.4 mmol/L (3.4-5.0)
[2020-12-24 06:26] LABS: BAND 8 % (0-10); LYMPHOCYTE 19 % (20.0-51.0); NEUTROPHILS 72 % (42.0-75.2)
[2020-12-24 06:27] LABS: ANISOCYTOSIS 1+; PLATELET ESTIMATE NORMAL (NORMAL); POIKILOCYTOSIS 1+
[2020-12-24 07:48] LABS: COLLECTION METHOD CLEAN CATCH
[2020-12-24 07:59] LABS: MUCOUS Present /lpf; PH 5 (5-8); SQUAMOUS EPITHELIAL 0-2 /hpf; URINE APPEARANCE Hazy; URINE BACTERIA None Seen /hpf; URINE BILIRUBIN Negative (NEGATIVE); URINE BLOOD 2+ (NEGATIVE); URINE COLOR Yellow; URINE GLUCOSE Negative (NEGATIVE); URINE KETONE 2+ (NEGATIVE); URINE LEUKOCYTE ESTERASE Negative (NEGATIVE); URINE NITRATE Negative (NEGATIVE); URINE PROTEIN(semi-quant) 2+ (NEGATIVE); URINE RBC >50 /hpf; URINE UROBILINOGEN Negative (NEGATIVE)
--- NOTE | 2020-12-24 08:26 | NUR ---
Report received from KIMBERLY Laguna. Shift assessment completed. PT denies complaints of pain or shortness of breath unless coughing. PT does have nausea after attempting to eat breakfast, zofran administered as ordered. Continues to wear oxymask at 7L, SPO2 96%. Lungs are coarse. Bowels active. Olvera catheter in place. PT ate some breakfast but not much. PT is resting in bed on phone. Will call if any needs arise. PTs daughter is called with a morning update and how mother did over night.
--- NOTE | 2020-12-24 10:38 | NUR ---
Report given to KIMBERLY Nichols.
--- NOTE | 2020-12-24 11:07 | NUR ---
PT transferred to room 301 via wheelchair. PT able to ambulate from bed and wheel chair with standby assist. KIMBERLY Nichols bedside. Care relinquished at this time.
[2020-12-25] VITALS (8 sets, daily range): BP systolic 99–145; BP diastolic 53–80; PULSE 70–84; TEMP 97.5–98.7
--- NOTE | 2020-12-25 03:20 | NUR ---
Assessment completed,alert/oriented VS stable. She is in room air denies pain, denies SOB. She feels nauseated. Zofran PRN given. IV access gets infiltrated and started new one in left hand. She look weak but gets up indepently. She have gutierrez in placed draining good clear and yellow. Otherwise she sleep most of the night. Continue to monitor.
--- NOTE | 2020-12-25 09:00 | NUR ---
Assessment completed, alert/oriented, vital signs stable, 92% on 4L. NC at this time, she denies pain, reports overall she feels "about the same", lungs diminished with some scattered wheezing, denies cough/ or sputum production, heart RRR/distal pulses are palpable, she has been up and worked with PT, still very activity/exertion intolerant, I have updated her daughter over the phone, will continue to monitor
--- NOTE | 2020-12-25 09:42 | NUR ---
The patient is COVID positive. SW attempted to contact the patient's room and personal phone to discuss discharge plan. She did not answer. SW then contacted the patient's daughter, Sarah (ph#[phone]), to complete intake. The patient lives in [place] with her three daughters. They are 8, 14, and [id number]. Sarah reports that the children are with her, while the patient is here. Sarah reports that the patient is independent with ADLs, but sometimes needs help with meal prep/cooking. She states that her or her siblings will help the patient with this, when needed. She does not have any DME. The patient's PCP is Dr. Fawn Ang and she receives her medications from [facility]. The patient does not have a DPOA-HC. Sarah reports that the patient was interested in completing one though. She states that the patient is not and that she has five children. Three children are over the age of 18: Momo Smith, and her 19-year-old daughter. Sarah reports that the plan is for the patient to return back home upon discharge. The patient is currently on 3 liters of oxygen. SW to continue to monitor. SW to collaborate with the patient's RN for the DPOA-HC. *Discharge plan: home with children*
[2020-12-25 15:37] LABS: ALBUMIN 3.7 gm/dL (3.5-5.0); C-REACTIVE PROTEIN 3.9 mg/dL (0.0-0.9); TOTAL PROTEIN 7.9 gm/dL (6.4-8.2)
[2020-12-25 15:51] LABS: BILIRUBIN UNCONJUGATED 0.4 mg/dL (0.0-1.1); BILIRUBIN,DIRECT 0.5 mg/dL (0.0-0.4); BILIRUBIN,TOTAL 0.8 mg/dL (0.0-1.0)
--- NOTE | 2020-12-25 21:58 | NUR ---
Pt seems anxious to me. chest pain rated 6/10. Narco was given. Will continue to monitor.
[2020-12-26 03:46] VITALS: BP 113/73; PULSE 65; TEMP 98.4
[2020-12-26 07:04] LABS: GRAN # 1.9 (1.4-6.5); GRAN % 74.5 % (42.2-75.2); HEMATOCRIT 37.6 % (37.0-47.0); HEMOGLOBIN 11.9 g/dl (12.5-16.0); LYMPH # 0.5 (1.2-3.4); LYMPH % 17.4 % (20.0-51.0); MEAN CELL VOLUME 101 fl (80.0-100.0); MEAN CORPUSCULAR HEMOGLOBIN 32 pg (27.0-31.0); MEAN CORPUSCULAR HGB CONC 32 g/dl (33.0-37.0); MEAN PLATELET VOLUME 10.5 fl (7.4-10.4); MONO # 0.2 (0.1-0.6); MONO % 7.7 % (1.7-9.3); PLATELET COUNT 197 K/mm3 (130-400); RED BLOOD COUNT 3.74 M/mm3 (4.10-5.30); REDCELL DISTRIBUTION WIDTH-CV 12.7 % (11.5-14.5)
[2020-12-26 07:12] LABS: ALBUMIN 3.4 gm/dL (3.5-5.0); BILIRUBIN,TOTAL 0.4 mg/dL (0.0-1.0); CALCIUM 8.6 mg/dL (8.4-10.2); CREATININE, serum 0.87 (0.52-1.25); POTASSIUM 4.2 mmol/L (3.4-5.0); TOTAL PROTEIN 7.6 gm/dL (6.4-8.2)
[2020-12-26 07:36] VITALS: BP 105/65; PULSE 70; TEMP 98.6
--- NOTE | 2020-12-26 07:47 | NUR ---
Pt assessment complete. Pt is sitting up in bed upon entry, she is A/O x4. Her breathing is tachy but unlabored on O2. Pt endorses SOB, pain to chest, worsened with cough, denies need for cough medication. Reports diarrhea has subsided. May HENAO. No further needs call light within reach.
[2020-12-26 11:26] VITALS: BP 113/62; PULSE 63; TEMP 97.6
[2020-12-26 17:17] VITALS: BP 122/70; PULSE 62; TEMP 97
--- NOTE | 2020-12-26 18:45 | NUR ---
Pt sat up in the recliner for part of the afternoon. Laying in bed currently, has not had any dinner yet, PO encouraged. Pt has a flat affect when communicating. She denies any needs at this time. O2 needs unchanged through the day.
[2020-12-26 20:24] VITALS: BP 118/71; PULSE 73; TEMP 98.7
--- NOTE | 2020-12-26 20:26 | NUR ---
ALERT AND OX4. PT SLEEEPING WHEN ENTERING. MEAL PASSED HAS SOME APPETITE NOT MUCH. DENIES SOA WHEN IN BED, NO CHEST PAIN, DIZZY OR LIGHTHEADNESS. CUMMINS TO DD, CLEAR YELLOW URINE. ASSESSMENT COMPLETE. PM MEDS GIVEN. FAMILY UPDATED ON STATUS. NEEDS MET. CALL CLAIRE HERNANDEZ.
[2020-12-26 23:24] VITALS: BP 115/83; PULSE 63; TEMP 97.9
[2020-12-27 04:15] VITALS: BP 118/72; PULSE 60; TEMP 98.4
--- NOTE | 2020-12-27 05:39 | NUR ---
rested through the night without incident. am meds given. needs met .
[2020-12-27 07:02] LABS: HEMOGLOBIN 12.1 g/dl (12.5-16.0); MEAN CELL VOLUME 100 fl (80.0-100.0); MEAN CORPUSCULAR HEMOGLOBIN 33 pg (27.0-31.0); MEAN CORPUSCULAR HGB CONC 33 g/dl (33.0-37.0); MEAN PLATELET VOLUME 10.5 fl (7.4-10.4); PLATELET COUNT 192 K/mm3 (130-400); RED BLOOD COUNT 3.72 M/mm3 (4.10-5.30); REDCELL DISTRIBUTION WIDTH-CV 12.5 % (11.5-14.5)
[2020-12-27 07:11] LABS: CALCIUM 8.7 mg/dL (8.4-10.2); CREATININE, serum 0.79 (0.52-1.25); POTASSIUM 4.3 mmol/L (3.4-5.0)
[2020-12-27 07:58] LABS: BAND 3 % (0-10); LYMPHOCYTE 29 % (20.0-51.0); NEUTROPHILS 56 % (42.0-75.2); PLATELET ESTIMATE NORMAL (NORMAL)
[2020-12-27 08:03] VITALS: BP 115/65; PULSE 58; TEMP 98.6
[2020-12-27 11:55] VITALS: BP 129/79; PULSE 58; TEMP 98
--- NOTE | 2020-12-27 13:49 | NUR ---
0700 PT RECEIVED RESTING IN BED. NO S/S OF DISTRESS NOTICED. PT HAS NO COMPLAINTS AT THIS TIME. COMFORT MEASURES IN PLACE. ISOLATION PRECAUTION MAINTAINED. CALL-LIGHT IN REACH. BED IN LOW POSITION. WILL CONTINUE TO MONITOR. 0900 MEDICATIONS ADMINISTERED ORDERED. OXYGEN AT 1L, PT SATURATIONS MAINTAINING ABOVE 90%. PT ATE HER MEAL. PT VOICES NO CONCERNS. CUMMINS CARE PROVIDED. WILL CONTINUE TO MONITOR. 1030 PT DAUGHTER UPDATED WITH THE CONSENT OF THE PT. 1200 PT ATE HER MEAL . PT VOICES NO CONCERNS. COMFORT MEASURES IN PLACE. WILL CONTINUE TO MONITOR.
--- NOTE | 2020-12-27 15:15 | NUR ---
The patient is currently requiring 1 liter of oxygen. SW contacted the patient to review d/c plan. The patient confirms that she plans on returning home upon discharge. She had no other questions or concerns for SW at this time. *Discharge plan: home with children*
[2020-12-27 15:19] VITALS: BP 98/68; PULSE 85; TEMP 99
--- NOTE | 2020-12-27 15:20 | NUR ---
Report from KIMBERLY Fink
--- NOTE | 2020-12-27 15:39 | NUR ---
REPORT GIVEN TO NURSE AYALA.
--- NOTE | 2020-12-27 18:18 | NUR ---
Patient laying in bed, very soft spoken. VSS 1L NC O2. No reported SOB. IV CDI, fluilds infusing. Denies pain and discomfort. Nurse gave the patient a warm blanket. No further needs expressed from the patient. Droplet/contact precautions in place. Call light within reach.
[2020-12-27 21:48] VITALS: BP 109/69; PULSE 77; TEMP 98.9
--- NOTE | 2020-12-27 21:48 | NUR ---
ALERT AND OX4. PT VERY QUIET SPOKEN. CONT TO HAVE POOR APPEITITE STATES BEING SOA OF IS GETTING LESS. ON 1 LITER O2NC. PM MEDS, ANTIBOTICS GIVEN. PT DENIES ANY PAIN. CALL LIGHT WI REACH.
--- NOTE | 2020-12-27 23:12 | NUR ---
UPDATED PT DAUGHTER ON STATUS OF PT. CONCERNS FOR DEPRESSION DAUGHTER STATES SHE HAS NOT CONTACTED HER IN A FEW DAYS. RELAYING MESSAGES TO PT. AND WILL PASS ON NEED TO SEE CLERGY. VALENTINA INITATED HERE 2 DAYS AGO. DAUGHTER SAID ITS BEEN PRESCRIBED FOR A WHILE NOT BUT PT NORMALY DOES NOT TAKE IT AT HOME.
[2020-12-28 04:38] VITALS: BP 109/59; PULSE 78; TEMP 98.4
--- NOTE | 2020-12-28 05:37 | NUR ---
RESTED THROUGH THE NIGHT WITHOUT INCIDENT. NEEDS MET. 02 UP TO 2 L THIS AM SHE SATING 87-88 % ON 1 LITER.
[2020-12-28 06:30] LABS: HEMATOCRIT 37.6 % (37.0-47.0); HEMOGLOBIN 12.2 g/dl (12.5-16.0); MEAN CELL VOLUME 99 fl (80.0-100.0); MEAN CORPUSCULAR HEMOGLOBIN 32 pg (27.0-31.0); MEAN CORPUSCULAR HGB CONC 32 g/dl (33.0-37.0); MEAN PLATELET VOLUME 10.5 fl (7.4-10.4); PLATELET COUNT 194 K/mm3 (130-400); REDCELL DISTRIBUTION WIDTH-CV 12.3 % (11.5-14.5)
[2020-12-28 06:37] LABS: CALCIUM 8.6 mg/dL (8.4-10.2); CREATININE, serum 0.75 (0.52-1.25); POTASSIUM 4.2 mmol/L (3.4-5.0)
[2020-12-28 07:28] LABS: BAND 2 % (0-10); LYMPHOCYTE 42 % (20.0-51.0); NEUTROPHILS 51 % (42.0-75.2); PLATELET ESTIMATE NORMAL (NORMAL)
[2020-12-28 08:00] VITALS: BP 102/64; PULSE 70; TEMP 97.8
[2020-12-28 13:00] VITALS: BP 114/88; PULSE 81; TEMP 98.3
[2020-12-28 15:57] VITALS: BP 111/51; PULSE 72; TEMP 98.3
--- NOTE | 2020-12-28 17:00 | NUR ---
0700 PT RECEIVED RESTING IN BED. NO S/S OF DISTRESS. PT SEEMS DOWN AND WAS ENCOURAGE TO DO OTHER ACTIVITIES, SUCH WATCHING TV, TALKING TO FAMILY OR FRIEND ON THE PHONE. OXYGEN IN PLACE AT 2L. PT HAS NO CONCERNS. CALL-LIGHT IN REACH. BED IN LOW POSITION. 0900 PT ATE SOME OF HER MEAL. MEDICATIONS ADMINISTERED ORDERED. PT HAS NO COMPLAINTS AT THIS TIME. 1000 PT DAUGHTER UPDATED WITH HER CONSENT. DAUGHTER ENCOURAGED TO BRING MOTHER ACTIVITIES SHE LIKE FROM HOME FOR HER STATES SHE WILL BRING HER PUZZLE BOOKS AND AIRPODS. 1030 PT TRIED TO WORK WITH PT TODAY AND SHE REFUSED. RISK AND BENEFITS OF PHYSICAL THERAPY EXPLAINED TO PT AND SHE STILL REFUSED. 1200 PT ENCOURAGED TO ORDER LUNCH. SHE ATE HALF OF HER LUNCH AND DRANK HER ENSURE. 1400 PT OFFERED A SNACK AND REFUSED. SHE IS WATCHING TV AT THIS TIME. 1600 V/S STABLE. PT DOWN TO 1L OF OXYGEN. PT ENCOURAGED TO ORDER SUPPER AND SHE STATES SHE WILL WHEN SHE'S READY.
[2020-12-28 19:34] VITALS: BP 102/54; PULSE 77; TEMP 97.8
--- NOTE | 2020-12-28 22:13 | NUR ---
ALERT ANDOX4. PT VERY QUIET SPOKEN. DENIES ANY PAIN, SOA W EXCERTION. PM MEDS GIVEN. IV FLUSHED, ANTIBOTICS GIVEN. POC DISCUSSED. PT ENC TO EAT STATES WILL LATER, ENC TO DRINK PROTEIN SHAKES. POOR APPEITITE. NEEDS MET.
[2020-12-29 00:18] VITALS: BP 112/71; PULSE 70; TEMP 98.1
[2020-12-29 03:26] VITALS: BP 110/62; PULSE 63; TEMP 97.9
--- NOTE | 2020-12-29 04:44 | NUR ---
rested through the night without incident.
[2020-12-29 07:59] VITALS: BP 103/67; PULSE 65; TEMP 97.5
[2020-12-29 09:31] LABS: EOS % 0.5 % (0-4.0); GRAN # 2.3 (1.4-6.5); GRAN % 55.8 % (42.2-75.2); HEMATOCRIT 38.3 % (37.0-47.0); HEMOGLOBIN 12.4 g/dl (12.5-16.0); LYMPH # 1.5 (1.2-3.4); LYMPH % 35.6 % (20.0-51.0); MEAN CELL VOLUME 98 fl (80.0-100.0); MEAN CORPUSCULAR HEMOGLOBIN 32 pg (27.0-31.0); MEAN CORPUSCULAR HGB CONC 32 g/dl (33.0-37.0); MEAN PLATELET VOLUME 10.4 fl (7.4-10.4); MONO # 0.3 (0.1-0.6); MONO % 6.9 % (1.7-9.3); PLATELET COUNT 217 K/mm3 (130-400); REDCELL DISTRIBUTION WIDTH-CV 12.3 % (11.5-14.5)
[2020-12-29 09:40] LABS: CALCIUM 8.8 mg/dL (8.4-10.2); CREATININE, serum 0.7 (0.52-1.25); MAGNESIUM 1.8 mg/dL (1.6-2.3); POTASSIUM 3.8 mmol/L (3.4-5.0)
--- NOTE | 2020-12-29 09:54 | NUR ---
0700 PT RECIEVED RESTING IN BED. NO S/S OF DISTRESS NOTICED. PT OXYGEN AT 0.5L. PT DENIES PAIN. PT ENCOURAGED TO ORDER BREAKFAST. CALL-LIGHT IN REACH. BED IN LOW POSITION. WILL CONTINUE TO MONITOR. 0800 V/S STABLE. 0900 MEDICATIONS ADMINISTERED ORDERED. PT HAS NO COMPLAINTS AT THIS TIME. BELONGINGS GIVEN TO PT, FAMILY MEMBER DROP BELONGINGS OFF. A.M. CARE PROVIDED. 0930 BREAKFAST GIVEN TO PT. 50% EATEN. PT ENCOURAGED TO EAT. WILL CONTINUE TO MONITOR.
[2020-12-29] MEDS ORDERED: PROAIR HFA0.09 MG/AC IH (10:05)
[2020-12-29] MEDS ORDERED: RT Albuterol HFA MDI IH (10:05)
[2020-12-29] MEDS ORDERED: ELIQUIS 5MG PO (10:05)
[2020-12-29] MEDS ORDERED: ROBITUSSIN DM 105 ML PO (10:06)
[2020-12-29] MEDS ORDERED: DECADRON6 MG PO (10:06)
[2020-12-29] MEDS ORDERED: TYLENOL 325MG325 MG PO (10:06)
[2020-12-29 12:00] VITALS: BP 119/79; PULSE 72; TEMP 98.8
--- NOTE | 2020-12-29 12:32 | NUR ---
1211 CUMMINS CATHETER DISCONTINUED. PT TOLERATED. 1215 DISCHARGE INSTRUCTIONS REVIEWED WITH PT. ALL QUESTIONS ANSWERED. ISOLATION MEASURES REVIEWED WITH PT. IV DISCONTINUED. PT DAUGHTER WILL BE PICKING HER UP. PT PACKED HER BELONGINGS. 1228 PT VOIDED.
== END 2020-12-29 12:56 | disposition home health service (06) | DRG 177 ==
LOC: COL.ER 11:58 → ICU 12:55 → MEDICAL 12:55
PROVIDERS: Family Medicine; Internal Medicine Pulmonary Disease; ADMIT Internal Medicine
PROC: XW033E5 Introduction of Remdesivir Anti-infective into Peripheral Vein, Percutaneous Approach, New Technology Group 5 (ICD-10-PCS; principal; 2020-12-24)
DX: U07.1 COVID-19 (principal); J12.82 Pneumonia due to coronavirus disease 2019; J96.01 Acute respiratory failure with hypoxia; M33.92 Dermatopolymyositis, unspecified with myopathy; R74.01 Elevation of levels of liver transaminase levels; F32.9 Major depressive disorder, single episode, unspecified; J45.20 Mild intermittent asthma, uncomplicated; R91.1 Solitary pulmonary nodule; D72.819 Decreased white blood cell count, unspecified; Z86.718 Personal history of other venous thrombosis and embolism; Z79.01 Long term (current) use of anticoagulants
CPT/HCPCS: 99232-AI; 99233-AI; 99239; A4314; A9284; J0456; J0692; J2405; J7030; J7050; J8540

== ENCOUNTER → 2021-01-29 | Outpatient (CLI) | payer MEDICAID ==
[~2021-01-29] MED LIST changes: +ROBITUSSIN DM 105 ML PO; +RT Albuterol HFA MDI IH; +TYLENOL 325MG325 MG PO
== END ==
LOC: COL.RAD 14:03
DX: U07.1 COVID-19 (principal); J12.82 Pneumonia due to coronavirus disease 2019

== ENCOUNTER → 2021-02-28 | Outpatient (CLI) | payer MEDICAID | LOC: COL.RAD 07:30 | DX: M33.90 Dermatopolymyositis, unspecified, organ involvement unspecified (principal); R41.89 Other symptoms and signs involving cognitive functions and awareness; Z79.899 Other long term (current) drug therapy | CPT/HCPCS: A9585 ==

== ENCOUNTER → 2021-04-01 | Outpatient (CLI) | payer MEDICAID | LOC: COL.RAD 10:00 | DX: J18.1 Lobar pneumonia, unspecified organism (principal) | CPT/HCPCS: Q9967 ==

== ENCOUNTER 2021-06-19 18:43 | Emergency (ER) | payer MEDICAID ==
[~2021-06-19] VITALS: Ht 165.1 cm; Wt 103.2 kg
[2021-06-19 18:51] VITALS: TEMP 98
[2021-06-19] MEDS ORDERED: DOXYCYCLINE 10100 MG PO (19:33)
[2021-06-19] MEDS ORDERED: PREDNISONE20 MG PO (19:33)
[2021-06-19 21:53] VITALS: BP 144/102; PULSE 95
== END 2021-06-19 21:53 | disposition home or self-care (01) ==
LOC: COL.ER 18:43
DX: U07.1 COVID-19 (principal); J45.20 Mild intermittent asthma, uncomplicated; F32.A Depression, unspecified; L93.0 Discoid lupus erythematosus; Z86.718 Personal history of other venous thrombosis and embolism; Z79.01 Long term (current) use of anticoagulants; Z79.899 Other long term (current) drug therapy
CPT/HCPCS: J7512

== ENCOUNTER 2021-07-15 10:30 | Outpatient (RCR) | payer MEDICAID ==
[~2021-07-15 10:30] MED LIST changes: +DOXYCYCLINE 10100 MG PO
== END 2021-07-29 | disposition home or self-care (01) ==
LOC: WSC
DX: M54.42 Lumbago with sciatica, left side (principal); G89.29 Other chronic pain

== ENCOUNTER 2021-08-05 09:00 | Outpatient (RCR) | payer MEDICAID ==
[2021-08-22] MEDS ORDERED: FOSAMAX 70MG TA70 MG PO (12:22)
== END 2021-08-13 10:17 | disposition home or self-care (01) ==
LOC: WSPT 09:00
DX: M54.42 Lumbago with sciatica, left side (principal); G89.29 Other chronic pain

== ENCOUNTER → 2021-08-22 | Outpatient (CLI) | payer MEDICAID ==
[~2021-08-22] VITALS: Ht 165.1 cm; Wt 102.0 kg
[~2021-08-22] MED LIST changes: +FOSAMAX 70MG TA70 MG PO
[2021-08-22 12:30] VITALS: BP 116/77; PULSE 88; TEMP 98.3
== END ==
LOC: COL.RAD 12:00
DX: E04.1 Nontoxic single thyroid nodule (principal)

== ENCOUNTER 2021-10-25 08:27 | Day surgery (SDC) | payer MEDICAID ==
[~2021-10-25] VITALS: Ht 165.1 cm; Wt 101.5 kg
[2021-10-25 09:34] VITALS: BP 127/79; PULSE 93; TEMP 97.9
[2021-10-25] MEDS ORDERED: FLAGYL500 MG PO (09:56)
[2021-10-25] MEDS ORDERED: PROTONIX 40MG T40 MG PO (09:57)
[2021-10-25 10:40] VITALS: BP 129/90; PULSE 86; TEMP 97
--- NOTE | 2021-10-25 10:40 | NUR ---
PT arrived from procedure and was settled by Marychuy HARRIS. Verbal report then obtained. PT is drowsy and sleeps unless aroused, but can respond to simple questions. VSS. PT provided a muffin and water per request. Daughter is present. PT denies nausea. PT oriented to room and call [place], within reach on her lap. Warm blankets provided to PT and daughter.
[2021-10-25 10:55] VITALS: BP 123/92; PULSE 79
--- NOTE | 2021-10-25 10:55 | NUR ---
VSS. PT continues to deny nausea; finished her muffin and continues to sip water. Call [place] remains within reach.
--- NOTE | 2021-10-25 11:05 | NUR ---
is speaking with the PT and daughter
[2021-10-25 11:10] VITALS: BP 124/81; PULSE 74
--- NOTE | 2021-10-25 11:10 | NUR ---
VSS. PT expressed desire to be discharged. Call [place] remains within reach
--- NOTE | 2021-10-25 11:10 | NUR ---
PT is speaking with the PT and her daughter.
--- NOTE | 2021-10-25 11:25 | NUR ---
IV discontinued. Catheter tip intact. Pressure bandage applied. NO swelling noted. DC instructions and educational material reviewed with the PT and her daughter, PT verbalized understanding and signed the related paperwork. Questions answered and concerns addressed. PT denied needing assistance changing into personal clothes. PT then dismissed from endo via wheelchair to the PT entrence by Hoda HARRIS. PT has DC packet and personal belongings and was transferred into the care of her daughter who is driving private car.
== END 2021-10-25 11:50 | disposition home or self-care (01) ==
LOC: SDCO 08:27
DX: K29.50 Unspecified chronic gastritis without bleeding (principal); K22.89 Other specified disease of esophagus; K22.4 Dyskinesia of esophagus; D50.9 Iron deficiency anemia, unspecified; R13.10 Dysphagia, unspecified; M19.90 Unspecified osteoarthritis, unspecified site; Z79.899 Other long term (current) drug therapy
CPT/HCPCS: J2704; J7120